=== PATIENT | male | born 1995 | race Caucasian/White ===

== ENCOUNTER 2016-05-17 12:16 | Emergency (ER) | payer BC ==
[2016-05-17 12:33] LABS: URINE SOURCE CLEAN CATCH
[2016-05-17 12:40] LABS: URINE APPEARANCE CLEAR; URINE BILIRUBIN NEG (NEG); URINE BLOOD NEG (NEG); URINE COLOR YELLOW; URINE GLUCOSE NEG (NEG); URINE KETONE NEG (NEG); URINE LEUKOCYTE ESTERASE NEG (NEG); URINE NITRATE NEG (NEG); URINE PROTEIN NEG (NEG); URINE UROBILINOGEN 0.2 MG/DL (NEG)
[2016-05-17 12:43] LABS: CULTURE INDICATED? NO
== END 2016-05-17 13:06 | disposition home or self-care (01) ==
LOC: CFTX 12:16
PROVIDERS: Nurse Practitioner
DX: M54.6 Pain in thoracic spine (principal); K21.9 Gastro-esophageal reflux disease without esophagitis
CPT/HCPCS: 81003; 96372; 99283; J1885